=== PATIENT | male | born 1945 | race Caucasian/White ===

== ENCOUNTER → 2019-10-20 | Day surgery (SDC) | payer MEDICARE, OTHER ==
[~2019-10-20] MED LIST: ASA81BEC PO; ASPIRIN EC325 M1 PO; BACLOFEN 10MG T10 MG PO; BROVANA15 MCG/2 M INH; CYMBALTA30 MG PO; FISH OIL 1,0001 EAC9 PO; IPRAT-ALBUT 0.5-3 ML INH; IRON325 M1 PO; LIPITOR80 MG PO; LISINOPRIL2.5 MG PO; MELATONIN5 MG SUBLING; METFORMIN HCL500 M3 PO; MICROZIDE12.5 MG PO; MINIPRESS2 MG PO; MULTIVITAMINS1 EAC7 PO; OXYCODONE HCL 55 MG PO; PEPCID AC20 MG PO; PULMICORT0.5 MG/2 M INH; VITAMIN C500 M1 PO; VITAMIN D32000 UNIT PO
[2019-10-20 09:03] LABS: HEMATOCRIT 31.2 % (42.0-52.0); HEMOGLOBIN 10.6 gm/dL (14.0-18.0); MCH 27.8 pg (26.0-34.0); MCHC 34.1 g/dL (28.0-37.0); MCV 81.4 fL (80.0-100.0); MPV 8.2 fl. (7.2-11.1); RBC 3.83 mil/uL (4.50-6.00); RDW-CV 16.4 % (10.5-14.5); WBC 5.9 thou/uL (4.0-11.0)
[2019-10-20 09:15] LABS: CALCIUM 8.6 mg/dL (8.5-10.1); CREATININE 1.5 mg/dL (0.6-1.3); POTASSIUM 4.4 mmol/L (3.5-5.1)
[2019-10-20 09:20] LABS: ALBUMIN 3.6 g/dL (3.4-5.0); TOTAL BILIRUBIN 0.4 mg/dL (<0.1-1.0); TOTAL PROTEIN 6.5 g/dL (6.4-8.2)
--- NOTE | 2019-10-20 12:37 | EKG ---
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: : 1945 Requested By: Evgeny Sullivan Order Number: [id number] Jolie MD: Horacio Love Measurements Intervals [place] Rate: 86 P: 51 NH: 165 QRS: -34 QRSD: 91 T: 57 QT: 351 QTc: 420 Interpretive Statements Sinus rhythm Left axis deviation Abnormal R-wave progression, early transition Baseline wander in lead(s) II,aVF No previous ECG available for comparison Electronically Signed On 10-20-2019 12:36:57 INSEAM LEVELER by Horacio Love [email or web address] <ELECTRONICALLY SIGNED> By: Horacio Love MD, [facility] 10/20/19 1236 2 2 Horacio Love MD, [facility] /EPI
[2019-10-20 12:56] LABS: BF RBC 250024 /mm3; CLARITY CLOUDY; TOTAL CELL COUNT 477 /mm3; TOTAL VOLUME 4 ml
[2019-10-20 13:16] LABS: BF LYMPHOCYTES 10 %; BF MONOCYTES 1 %; BF POLYS 89 %
[2019-10-20 13:17] LABS: SOURCE RIGHT KNEE
[2019-10-21 14:07] LABS: BODY FLUID PROTEIN 3.7 g/dL (())
[2019-10-21 17:07] LABS: SOURCE KNEE JOINT
--- NOTE | 2019-10-21 23:06 | PATH ---
[address] [address] PATHOLOGY RPT PROCEDURE Name: RIAZ SULLIVAN [id number] Admission: 10/20/19 Date of : 47 Discharge: Report #: [id number] Path Case #: [id number] [facility] Accession Number: [id number] . 01 Material submitted: . knee - TISSUE RIGHT KNEE FOR PMNS. Modifiers: right . 01 Clinical history: . Right knee pain, arthro fibrosis right total knee . 02 Diagnosis: "Tissue right knee for PMNS", synovial biopsy: - Degenerated synovial tissue with no significant acute inflammation (less than 5 neutrophils per 1 high-power field). - See comment. (LUIS:guy; 10/21/2019) [facility]BR 10/21/2019 1735 Local . 02 Comment: No viable synovial tissue is present for evaluation. A rare neutrophil is noted within the degenerated tissue. A small focus of blood clot showing peripheral blood and peripheral blood elements (to include circulating neutrophils) is noted; however, rare neutrophils identified within the degenerated synovial tissue are less than 5 per one high-power field. Correlation with clinical history, additional laboratory data (to include microbiology specimens and fluid analysis) and radiographic findings is required. (CLW:guy; 10/21/2019) . 02 Electronically signed: . Sole Naranjo MD, Pathologist NPI- [id number] . 01 Gross description: . Received in formalin labeled "Riaz Sullivan, tissue right for PMNs history of right total knee" is a 2.0 x 1.0 x 0.3 cm aggregate of simon-white irregular soft tissue fragments. The specimen is submitted without sectioning in cassette A1. ([facility];10/20/2019) [facility] 10/20/2019 1912 Local . 02 Pathologist provided ICD-10: M67.861 . 02 CPT . 316623 Specimen Comment: A courtesy copy of this report has been sent to [phone], [phone] Specimen Comment: [address] [place] [address] PATHOLOGY RPT PROCEDURE Name: RIAZ SULLIVAN Yancy Room: [facility]#: [id number] Admission: 10/20/19 Date of : 47 Discharge: Report #: [id number] Path Case #: [id number] Specimen Comment: Report sent to / DR POTTER Performed at: [address] [facility], [place], [place] [id number] MD Jose Luis Crawley MD Phone: [phone] Performed at: 02 [facility] [address], [place], [place] [id number] MD J Luis Evans MD Phone: [phone]
--- NOTE | 2019-10-25 15:00 | OP ---
[address] [address] OPERATIVE REPORT Name: RIAZ MCCORD Room: [facility]#: [id number] Admission: 10/20/19 Attend Phys: Evgeny Sullivan, Discharge: Date of : 47 Report #: [id number] THIS REPORT FOR: //name// CC: Evgeny Serrano DATE OF SERVICE: 10/20/2019 Fadi Mendez DO dictating the operative report on behalf of Dr. Evgeny Sullivan. PREOPERATIVE DIAGNOSIS: Right knee arthrofibrosis. POSTOPERATIVE DIAGNOSIS: Right knee arthrofibrosis. SURGEON: Evgeny Sullivan DO ARTIFICIAL STONE SETTER: Fadi Mendez DO PROCEDURE PERFORMED: Right knee arthroscopy with extensive debridement. ANESTHESIA: General. ESTIMATED BLOOD LOSS: 20 mL. ANTIBIOTICS: 2 grams of Ancef. SPECIMENS: Intra-articular synovial tissue sent for PMNs and synovial fluid sent for analysis and cultures. COMPLICATIONS: None. TOURNIQUET: 38 minutes at 250 mmHg. INDICATIONS FOR PROCEDURE: The patient is a pleasant 74-year-old male who is known to our practice after undergoing a right total knee arthroplasty. However, he continued to have ongoing right knee pain, effusions and stiffness. Despite conservative measures of rest, ice, nonsteroidal anti-inflammatories, extensive physical therapy, he was therefore diagnosed with right knee arthrofibrosis and recommended to undergo right knee arthroscopy with extensive debridement. The patient is in full understanding and agrees with this plan. Therefore, the risks, benefits, treatment options, alternatives, and indications were discussed with the patient. Risks include but not limited to damage to surrounding neurovascular structures, continued pain, continued bleeding, need for repeat surgery, synovial cutaneous fistula, wound dehiscence, wound infection and infection of the prosthesis and further [place] [address] OPERATIVE REPORT Name: RIAZ MCCORD Room: [facility]#: [id number] Admission: 10/20/19 Attend Phys: Evgeny Sullivan, Discharge: Date of : 47 Report #: [id number] antibiotic spacer and prolonged IV antibiotics with complications of acute renal failure and C. difficile colitis. DVT, PE, as well as inherent complications of anesthesia. The patient understands the risks and wished to proceed with surgery. DESCRIPTION OF PROCEDURE: The patient was seen in the preoperative holding area where the operative site was marked and initialed. Consent was signed and obtained. The patient was then transferred back to the operative suite and placed supine on the operating room table. He was given the benefit of general anesthesia, then a well-padded tourniquet was applied to the right upper thigh. Right lower extremity was then placed in the arthroscopic leg vivas and then prepped and draped in normal sterile fashion. Surgery began with a timeout indicating appropriate patient and procedure to be performed, operative site, operative indications and preoperative antibiotics. All in attendance were in agreement. Surgery began with vertical incision for the anterolateral starting portal. Trocar and cannula were then inserted and trocar was removed. Subsequently, approximately 5 mL of clear synovial fluid with some slight blood-tinged was exsanguinated, put into a culture specimen cup and sent to the laboratory. Scope was then inserted and then arthroscopy was then performed indicating significant arthrofibrosis with extensive scar tissue throughout the entire knee tricompartmentally. The medial portal was then established utilizing the 18-gauge spinal needle and then a 15-blade scalpel was used to incise the skin and subcutaneous tissues in a horizontal fashion and a small capsulotomy was made. Arthroscopic shaver was then inserted into the medial portal and then debridement was then performed. Through debridement further visualization was then able to be seen and there was significant scar formation in the suprapatellar pouch and the medial and lateral gutters as well as in the infrapatellar fat pad as well as significant band across the anterior aspect of the knee, abutting and abrading the anterior aspect of the femoral condyles of the prosthesis. All bands were then subsequently lysed with the arthroscopic shaver until there was determined to be no fibrous bands abrading any of the part of the prosthesis or restricting any parts of range of motion. Shaver was then subsequently removed and the knee was then thoroughly exsanguinated and then taken through a range of motion and was able to have 0-120 degrees of range of motion without any restrictions. Knee was also stable to varus and valgus stress testing and similar to the preoperative stability; however, with increased range of motion. Next portals were then closed with inverted [id number] suture or stitches with a 5-0 nylon followed by dressings of Xeroform, 4 x 4's, Kerlix, soft roll and Niko wrap. The patient was then transported back to the PACU in normal stable condition. <ELECTRONICALLY SIGNED> By: Ba Allan DO 10/25/19 1500 1155 1310Evgeny Sullivan DO /nt
== END | disposition home or self-care (01) ==
LOC: M.SUR 08:10
PROVIDERS: Orthopaedic Surgery
DX: M24.661 Ankylosis, right knee (principal); M67.861 Other specified disorders of synovium, right knee; Z96.651 Presence of right artificial knee joint; Z98.890 Other specified postprocedural states; Z88.8 Allergy status to other drugs, medicaments and biological substances; Z79.82 Long term (current) use of aspirin; Z79.899 Other long term (current) drug therapy